=== PATIENT | female | born 1945 | race Caucasian/White ===

== ENCOUNTER 2016-10-12 13:30 | Inpatient (IN) | payer MEDICARE ==
--- NOTE | ~2016-10-12 | IDS ---
Interim Discharge Summary [facility] [address] [place]. [address] NAME: SANDI FUNEZ : 47 STATUS : ADM IN PAT#: [id number] AGE: 71 ADM/REG DATE : 10/12/16 MR#: [id number] REPORT SERV DATE: 10/18/16 DICTATED BY: ELLYN MILLER II DATE: 10/18/16 REPORT STATUS : Draft TRANSCRIBED BY: MODL DATE: 10/18/16 ADMISSION DATE: 10/12/2016 DISCHARGE DATE: DATE OF INTERIM: 10/18/2016 INTERIM DIAGNOSES: 1. Metastatic ixc-srzgn-ogcy lung carcinoma. 2. Recurrent pericardial effusion with tamponade on admission, status post pericardial window. 3. Bilateral malignant effusions with history of right VATS and currently status post left VATS with chest tube in place. 4. Generalized weakness. 5. Edema with hydration. 6. Volume overload. 7. Chronic right upper extremity lymphedema. 8. History of breast cancer. 9. Anemia. CONSULTS: 1. Dr. Darleen Valdes with [facility]. 2. Dr. Fletcher with Cardiothoracic Surgery. BRIEF HISTORY OF PRESENT ILLNESS: The patient is a 71-year-old female with the above history, who presented to [facility] due to nausea, vomiting, and weakness. For detailed history and physical examination, please see Dr. Dandy Johnson's note from 10/12/2016. HOSPITAL COURSE: After admission, the patient was found to have increasing pleural effusion on the right. CT of the chest was done, which showed a new large pericardial effusion measuring 5.5 cm with a moderate loculated right pleural effusion with associated atelectasis and consolidation in the right lower lobe, right middle lobe, and to a lesser extent, posterior aspect of the right upper lobe. There is a small left effusion and left basilar atelectasis. There was stranding and inflammation in the superior mediastinum, right axilla along with right chest wall, and in the right upper extremity, which is associated with her lymphedema. There was also noted a moderate stenosis of the origin of the left subclavian artery. Subsequent echocardiogram was done, which showed large pericardial effusion with signs of tamponade. Otherwise LVEF was intact in the low 50s and RV function was normal. Cardiothoracic Surgery was consulted, and the patient subsequently underwent a left VATS with left pericardial window and drainage with pericardial effusion. Pathology on pericardial fluid again positive for malignancy. Currently, the patient still has a left chest tube in place with improvement in output. Hopefully, this can be discontinued soon. Regarding her lung cancer, Dr. 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 This is currently pending further discussion for chemotherapy options per Oncology. Otherwise, the patient does appear to be fairly fluid overloaded with bilateral lower extremity edema. Currently, she is being given Lasix 40 mg q.8 hours and will continue to watch her creatinine closely. Interim Discharge Summary [place] [id number] [place]. [address] NAME: SANDI FUNEZ : 47 STATUS : ADM IN [facility]#: [id number] AGE: 71 ADM/REG DATE : 10/12/16 MR#: [id number] REPORT SERV DATE: 10/18/16 DICTATED BY: ELLYN MILLER II DATE: 10/18/16 REPORT STATUS : Draft TRANSCRIBED BY: BRUNILDA DATE: 10/18/16 She has chronic fairly significant right upper extremity lymphedema given her history of breast cancer. The patient is going to be re-evaluated by Physical Therapy given her weakness and postop status. She may need rehab going forward. Case Management is following. Otherwise, Dr. Soto will take over for the patient starting tomorrow. YESICA/BRUNILDA Ellyn Miller II, MD / [id number] CC: Brett Howe M.D.
--- NOTE | ~2016-10-12 | OP ---
Record Of Operation [facility] [address] [place]. [address] NAME: SANDI FUNEZ MICHELLE : 47 STATUS : ADM IN PAT#: [id number] AGE: 71 ADM/REG DATE : 10/12/16 MR#: [id number] REPORT SERV DATE: 10/16/16 DICTATED BY: EMILE JEONG DATE: 10/15/16 REPORT STATUS : Draft TRANSCRIBED BY: MODL DATE: 10/15/16 DATE OF PROCEDURE: 10/15/2016 ATTENDING PHYSICIAN: Emile Jeong M.D. CONSTRUCTION DIRECTOR: Armaan Ruvalcaba M.D. RN MILITARY: Sarkis White. PREOPERATIVE DIAGNOSES: 1. Stage IV lung non-small cell lung cancer. 2. Recurrent malignant pericardial effusion. 3. Cardiac tamponade. POSTOPERATIVE DIAGNOSES: 1. Stage IV lung non-small cell lung cancer. 2. Recurrent malignant pericardial effusion. 3. Cardiac tamponade. PROCEDURE PERFORMED: 1. Left video-assisted thoracoscopic surgery. 2. Left pericardial window with drainage of pericardial effusion. COMPLICATIONS: None. TUBES AND DRAINS: A 32 straight. FINDINGS: 900 mL of bloody pericardial effusion. PATH: The effusion was sent for path and a quarter size piece of pericardium was sent. POSTOPERATIVE CONDITION: To CVICU on epinephrine drip. INTRAOPERATIVE FINDINGS: Continued approximately 7 to 8 minutes post induction prior to me starting operation while she was still supine. She had episodes of symptomatic bradycardia with hypertension which responded to epinephrine, and she spent the remainder of the operation on epinephrine drip. She did get approximately 10 seconds of compressions from Dr. Suman Alamo. INDICATIONS FOR PROCEDURE: The patient is a 71-year-old female who underwent approximately a year ago a right talc pleurodesis and pericardial window by myself. She had a prolonged protracted stay in the hospital from that and presents to [facility] now with recurrent pericardial effusion. She was suspected from malignant non-small cell lung cancer from her stage IV disease. The patient was seen. Risks, benefits, and alternatives were discussed, and she was taken to the operating room. She had signs of cardiac tamponade on her preoperative echo and a large pericardial effusion on her CT scan. Risks, benefits, and Record Of Operation [facility] [address] [place]. [address] NAME: DEE DEESANDI MARTINEZ : 47 STATUS : ADM IN PAT#: [id number] AGE: 71 ADM/REG DATE : 10/12/16 MR#: [id number] REPORT SERV DATE: 10/16/16 DICTATED BY: EMILE JEONG DATE: 10/15/16 REPORT STATUS : Draft TRANSCRIBED BY: BRUNILDA DATE: 10/15/16 alternatives were discussed again, and she was brought to the operating room. DETAILS OF PROCEDURE: The patient was brought to the operating room, placed supine on the operating room table. After satisfactory induction of general endotracheal anesthesia, she was having IVs placed when she had a symptomatic episode of bradycardia. She underwent ephedrine, epinephrine and approximately 10 to 15 seconds of compressions which she responded to. Decision was made to continue the case. The patient was then log rolled in a right lateral decubitus position. Axillary roll was placed on. Arm was placed on an arm board. All pressure points were padded. The beanbag was aspirated. She was prepped and draped in usual sterile fashion. A 3-cm incision was made in the 6th intercostal space. The skin and subcutaneous tissues were divided down to the latissimus. The latissimus was divided. The chest wall was encountered, and the intercostal muscle was incised. Chest was entered. A wound protector was placed, and the camera was introduced. Working through this port, a pericardial fat pad was removed from the pericardium and the pericardium was tense and dark. A hook cautery was used to make a small incision in the pericardium which immediately had a fountainess release of bloody pericardial effusion. Following drainage of this, approximately 900 mL, the pericardium was grasped and elevated and using the Enseal a quarter to 50 cent piece of pericardium was excised. The pericardial fat pad was excised as well, and the procedure was terminated. The 32-[place] chest tube was placed to the apex and was anchored into position. The lung was reinflated. The procedure was terminated. The wound was closed with 0 Vicryl, 2-0 Vicryl, and 4-0 Monocryl. Dry sterile dressings were placed. She was log rolled supine, taken to CVICU in critical stable condition. CHANDANA/BRUNILDA Emile Jeong MD / [id number] CC: Darleen Valdes M.D.
--- NOTE | ~2016-10-12 | HP ---
History And Physical [facility] [address] [place]. [address] NAME: SANDI FUNEZ : 47 STATUS : ADM IN PAT#: [id number] AGE: 71 ADM/REG DATE : 10/12/16 MR#: [id number] REPORT SERV DATE: 10/12/16 DICTATED BY: CORONA JOHNSON DATE: 10/12/16 REPORT STATUS : Draft TRANSCRIBED BY: MODL DATE: 10/12/16 DATE OF ADMISSION: 10/12/2016 CHIEF COMPLAINT ON ADMISSION: Inability to tolerate p.o. and weakness. HISTORY OF PRESENT ILLNESS: This is a 71-year-old female, sent in from Dr. Darleen Valdes's office today. She presented today for an acute visit. She was seen by Dr. Darleen Valdes on October 01 and at that time was doing well. Stated for the past few days since about October 06, she has not been feeling well. She says for several days, she has been unable to tolerate anything but liquids by mouth. This includes some of her medications and her pain medication. She has chronic back pain for which she has been slightly worsening due to inability to tolerate her pain medication. She presented to the ER on the and was noted to have leukocyte esterase, positive on her urine and was started on Macrobid. She states that made her nausea and vomiting worse and given her recent C. difficile, Dr. Valdes stopped this medication subsequently. She has had no fevers. No diarrhea. She reports she is having normal formed stools. Her weakness and lightheadedness have gotten worse and she presented to the office today in a wheelchair. Dr. Valdes reports that she had been given her IV fluids in the office without any improvement in her weakness. She did have slight orthostatic hypotension today. She has also not been able to tolerate her Tarceva for several days. She denies dysuria or chest pain. She says she has more shortness of breath than usual when she gets up but she says that is because she just feels so weak. REVIEW OF SYSTEMS: Full review of systems is obtained and is negative with the exception of the above HPI. PAST MEDICAL HISTORY: 1. She has a history of breast cancer 9 years ago. She was on hormonal therapy for this breast cancer stage III. 2. She has a history of surgeries including hysterectomy, cholecystectomy, and back surgeries. 3. Metastatic adenocarcinoma of the lung. HOME MEDICATIONS: Artificial Tears p.r.n.; Coreg 3.125 p.o. b.i.d.; Tarceva 150 mg daily; folic acid 1 mg daily; Lasix 40 mg daily; Dilaudid p.r.n.; lisinopril 2.5 daily; Ativan p.r.n.; Zofran p.r.n.; pantoprazole 40 p.o. b.i.d.; Phenergan p.r.n.; magic mouthwash p.r.n.; and magnesium p.r.n. for leg cramps. SURGERIES: Other surgeries include VATS, pleurodesis, pericardial window, and bilateral mastectomy. She does have chronic right arm lymphedema subsequently. ALLERGIES: INCLUDE CODEINE, CEPHALOSPORINS, PRIMARILY KEFLEX. SOCIAL HISTORY: Former smoker. Denies current alcohol or drugs. Past medical history, mother did have history of ovarian cancer. History And Physical [address] [address] NAME: SANDI FUNEZ : 47 STATUS : ADM IN [facility]#: [id number] AGE: 71 ADM/REG DATE : 10/12/16 MR#: [id number] REPORT SERV DATE: 10/12/16 DICTATED BY: CORONA JOHNSON DATE: 10/12/16 REPORT STATUS : Draft TRANSCRIBED BY: BRUNILDA DATE: 10/12/16 Today in the office, Dr. Valdes did check blood work that overall was unremarkable. White blood cell count 9.8, hemoglobin 10.4 with platelet count of 286. BMP unremarkable. PHYSICAL EXAMINATION: VITAL SIGNS: Temperature 98.3, blood pressure 143/76, saturating 99% on room air, pulse of 96, and breathing 18 times a minute. GENERAL: This is a chronically ill-appearing female, who is in no acute distress. She is pleasant and cooperative. HEENT: Extraocular muscles are intact. Sclerae anicteric. Pupils equal. NECK: Supple. LUNGS: Clear to auscultation bilaterally without any appreciable wheezes, rales, or rhonchi. CARDIAC: Regular rate and rhythm with no murmurs appreciated. EXTREMITIES: She does have mild right arm lymphedema. No lower extremity edema. ABDOMEN: Soft, nontender, and nondistended with no appreciable masses. NEUROLOGIC: Cranial nerves 2 through 12 are grossly intact. Face is symmetric. Tongue is midline. PSYCHIATRIC: The patient is cooperative and appropriate. ASSESSMENT AND PLAN: This is a 71-year-old female, who presents with worsening weakness, nausea, vomiting, and inability to tolerate p.o. PROBLEMS: 1. Metastatic lung cancer non-small cell. We will have Oncology follow with as per discussion with Dr. Valdes. We will hold Tarceva at this time. We will also get an MRI of her brain given she would be at risk for possible intracranial metastasis which may explain some of her symptoms. 2. Orthostatic hypotension. We will resuscitate her with IV fluids and check an a.m. cortisol to rule out any adrenal insufficiency. 3. Recent Clostridium difficile infection and sepsis. We will check a procalcitonin and hold off on starting empiric antibiotics given recent Clostridium difficile. We will also check cultures and follow along. 4. Weakness. We will workup for infection as mentioned above. Check cultures. We will also check a procalcitonin. 5. History of breast cancer. She has been recently on tamoxifen. Oncology will follow along with us. 6. History of iron-deficiency anemia. We will follow her counts. 7. Hypokalemia and hypocalcemia. We will follow her counts and continue her home calcium supplementation. 8. Hypertension. We will hold her lisinopril and her Lasix given her orthostatic hypotension. 9. Code status. The patient is a limited code. She does not wish to have compressions or intubation. 10.DVT prophylaxis with enoxaparin. History And Physical [address] [address] NAME: SANDI FUNEZ : 47 STATUS : ADM IN PAT#: [id number] AGE: 71 ADM/REG DATE : 10/12/16 MR#: [id number] REPORT SERV DATE: 10/12/16 DICTATED BY: CORONA JOHNSON DATE: 10/12/16 REPORT STATUS : Draft TRANSCRIBED BY: BRUNILDA DATE: 10/12/16 TIFFANIE/BRUNILDA Corona Johnson MD / [id number] CC: Brett Howe M.D.
--- NOTE | ~2016-10-12 | DS ---
Discharge Summary [facility] [address] [place]. [address] NAME: SANDI FUNEZ : 47 STATUS : DIS IN PAT#: [id number] AGE: 71 ADM/REG DATE : 10/12/16 MR#: [id number] REPORT SERV DATE: 10/22/16 DICTATED BY: NASIM SOTO DATE: 10/21/16 REPORT STATUS : Draft TRANSCRIBED BY: MODL DATE: 10/21/16 ADMISSION DATE: 10/12/2016 DISCHARGE DATE: 10/21/2016 DISCHARGE DIAGNOSES: 1. Metastatic non-small cell lung cancer. 2. Pericardial effusion with tamponade physiology, status post pericardial window. 3. Anasarca. 4. Generalized debility. 5. Chronic right upper extremity lymphedema that is stable. 6. History of breast cancer. 7. Anemia. CONSULTANTS DURING THIS HOSPITALIZATION: Dr. Darleen Valdes of [facility]. Dr. Fletcher of Cardiothoracic Surgery. BRIEF HISTORY OF PRESENT ILLNESS: The patient is a 71-year-old female, presented with nausea, vomiting, and weakness. For detailed history and physical exam, please see note dictated by Dr. Dandy Johnson on 10/12/2016. HOSPITAL COURSE: After being admitted to the hospital, this patient was cared for by Dr. Arthur. Please refer to interim summary dictated by Dr. Arthur on 10/18/2016. I took over this patient's care on 10/19/2016. This patient was doing relatively well. She still had significant output in her chest tube and Cardiothoracic Surgery continued to follow. Within the next 48 hours, this patient's chest tube output significantly reduced. She was placed to water seal and then chest tube was removed. Post removal, this patient's overall debility significantly improved. Oncology signed off her care and CT surgery signed off her care as well. This patient feels well enough that she wants to go home and recover in the home setting. This was thought to be a mainly fluid related effusion, so her diuretics were increased during this stay. However, now her creatinine is rising, so will go back to using once daily Lasix. Otherwise, she remained stable and is being discharged in stable condition. DISCHARGE DISPOSITION: Home. DISCHARGE ACTIVITY: As tolerated. DISCHARGE DIET: Low sodium diet. DISCHARGE MEDICATIONS: Folic acid 1 mg once daily, Lasix 40 mg once daily, Protonix 40 mg twice daily, Tarceva 150 mg p.o. daily, Coreg 3.125 mg twice daily, Artificial tears, Promethazine 25 mg every six hours p.r.n. for nausea, lisinopril 2.5 mg once daily, magic mouthwash as needed, lorazepam 0.5 mg once every four hours p.r.n. for anxiety, Dilaudid 1 mg to 2 mg every four hours p.r.n., Zofran ODT 8 mg p.o. six hours p.r.n., magnesium one tablet p.o. daily p.r.n. Discharge Summary [address] [facility] [address] NAME: SANDI FUNEZ : 47 STATUS : DIS IN PAT#: [id number] AGE: 71 ADM/REG DATE : 10/12/16 MR#: [id number] REPORT SERV DATE: 10/22/16 DICTATED BY: NASIM SOTO DATE: 10/21/16 REPORT STATUS : Draft TRANSCRIBED BY: BRUNILDA DATE: 10/21/16 DISCHARGE FOLLOWUP: With Dr. Darleen Valdes in the office as scheduled previously, with Dr. Fletcher as scheduled by the Surgery, and with Dr. Lisette Torres as scheduled in the past. More than 30 minutes spent planning this patient's discharge, reconciling medications, discussing hospital care, follow up with the patient, and documenting this discharge. SV/MODL Nasim Soto M.D. / [id number] CC: Brett Howe M.D. Brooke R. Daniel, M.D. Wilson M. Clements, MD
--- NOTE | ~2016-10-12 | CN ---
Consultation Report [facility] [address] [place]. [address] NAME: ILSA FUNEZ : 47 STATUS : ADM IN PAT#: [id number] AGE: 71 ADM/REG DATE : 10/12/16 MR#: [id number] REPORT SERV DATE: 10/15/16 DICTATED BY: TIARA THOMAS DATE: 10/15/16 REPORT STATUS : Draft TRANSCRIBED BY: MODL DATE: 10/15/16 CONSULT REPORT DATE OF CONSULTATION: 10/15/2016 Nurse practitioner with cardiothoracic surgery. REASON FOR CONSULTATION: Right-sided pleural effusion and pericardial effusion. HISTORY OF PRESENT ILLNESS: This is a pleasant 71-year-old female, who unfortunately has a history of stage IV non-small cell lung cancer. She had a malignant right-sided pleural effusion and pericardial effusion last year and underwent a right VATS with pericardial window and mechanical and chemical pleurodesis of the right lung in October [address] Emile Fletcher. She had stayed out of the hospital for some time but came back again on 10/12/2016 with weakness and poor appetite. She ended up having a CT angiogram of her chest which showed a large circumferential pericardial effusion measuring up to 5.5 cm in transverse diameter just adjacent to the left ventricle with signs of cardiac tamponade per echocardiogram this morning. Ejection fraction is estimated around 50%. There is also a moderate loculated right pleural effusion involving all 3 lobes on the right with a small left-sided pleural effusion. Due to proximity of the right pleural effusion to the right chest wall and the pericardium, it would make it difficult to do a right VATS with pericardial window at this time. Currently her heart rate and blood pressure are stable with no significant symptoms other than weakness. Cardiothoracic Surgery was consulted for evaluation of pericardial window plus or minus a video-assisted thoracoscopy for right-sided pleural effusion. PAST MEDICAL HISTORY: She had a history of stage III breast cancer 9 years ago, status post bilateral mastectomy and metastatic adenocarcinoma of the lung. PAST SURGICAL HISTORY: Bilateral mastectomy, hysterectomy, back surgery, cholecystectomy, and pericardial window with right VATS and chemical and mechanical pleurodesis in October 2015. SOCIAL HISTORY: She is a former smoker but quit several years ago. No history of alcohol abuse or use of illicit drugs. FAMILY HISTORY: Mother with a history of ovarian cancer. ALLERGIES: SHE IS ALLERGIC TO CODEINE, CEPHALOSPORINS, AND SHE WAS PREVIOUSLY ALLERGIC TO KEFLEX. HOME MEDICATIONS: Artificial Tears 1 drop ophthalmically as needed; carvedilol 3.125 mg p.o. twice a day; Tarceva 150 mg p.o. daily; folic acid 1 mg p.o. every morning; Lasix 40 mg p.o. every morning; Dilaudid 1 to 2 mg p.o. q.4 hours as needed; lisinopril 2.5 mg p.o. every morning; Ativan 0.5 mg p.o. q.4 hours as needed; Zofran 8 mg p.o. q.6 hours as needed; Consultation Report [place] [id number] [facility] [place]. [address] NAME: ILSA FUNEZ : 47 STATUS : ADM IN [facility]#: [id number] AGE: 71 ADM/REG DATE : 10/12/16 MR#: [id number] REPORT SERV DATE: 10/15/16 DICTATED BY: TIARA THOMAS DATE: 10/15/16 REPORT STATUS : Draft TRANSCRIBED BY: BRUNILDA DATE: 10/15/16 Protonix 40 mg p.o. twice a day; Phenergan 25 mg p.o. q.6 hours as needed; Magic mouthwash 15 mL swish and swallow 4 times a day; and magnesium 1 tab p.o. daily as needed for leg cramps. REVIEW OF SYSTEMS: A 10-point review of systems was obtained and is negative other than the HPI. PHYSICAL EXAMINATION: VITAL SIGNS: From today, temperature 97.6, heart rate 87, blood pressure 117/61, respiratory rate 18, and O2 saturation 97% on 3 L. GENERAL: Pleasant ill-appearing female, in no acute distress. NEUROLOGIC: Alert and oriented x3. Pupils exhibit PERRLA. HEENT: Head normocephalic and atraumatic. NECK: Supple. Sclerae clear. LUNGS: Clear to auscultation. She has coarse lung sounds in the right base. CARDIAC: S1 and S2 with no murmurs, rubs, or gallops. ABDOMEN: Soft, nontender with active bowel sounds. EXTREMITIES: Free of cyanosis or clubbing. She has some swelling on her right upper extremity which is low but worse than the left. Pedal pulses are present and equal bilaterally. LAB DATA: White blood cell count 10.6, hemoglobin 9.3, hematocrit 29.2, and platelets 275. Sodium 135, potassium 4.2, chloride 103, bicarb 20, BUN 32, creatinine 1.2, and glucose 146. ASSESSMENT AND PLAN: This is a pleasant 71-year-old female with a history of metastatic adenocarcinoma of the lungs. She has had a pericardial effusion and pleural effusion previously with right VATS and pericardial window in October 2015. She is back in to the hospital with weakness and poor appetite. CT angiogram of the chest showed a large pericardial effusion with signs of tamponade per echocardiogram this morning and a moderate right sided loculated pleural effusion. Due to the proximity of her right pleural effusion to the chest wall and pericardium, she will need a left video-assisted thoracoscopy with pericardial window today and we will address the right-sided pleural effusion at a later time. I discussed the plan of care with the patient and the primary team reviewed the images in the operating room with Dr. Fletcher who believes the patient needs to go for surgery later this afternoon. We will keep her n.p.o. for now and consult her for the surgery later today. We appreciate the consultation and look forward to helping to take care of Ms Ilsa Funez. DEWEY/BRUNILDA Tiara Thomas NP Consultation Report [address] [address] NAME: ILSA FUNEZ : 47 STATUS : ADM IN PAT#: [id number] AGE: 71 ADM/REG DATE : 10/12/16 MR#: [id number] REPORT SERV DATE: 10/15/16 DICTATED BY: TIARA THOMAS DATE: 10/15/16 REPORT STATUS : Draft TRANSCRIBED BY: BRUNILDA DATE: 10/15/16 / [id number] CC: Brett Howe M.D.
[~2016-10-12 13:30] MED LIST: *UNABLE1; ACETSUP650 PR; ARIMIDEX1 PO; ASAB PO; ATV.5 PO; CENTRUM TAB1 TAB PO; CLARITD24H PO; CLOBETASOL E0.05 % TOP; CLOBETASOL0.051 EX; CLOBETASOL0.051 TOP; COREG3 PO; DIL2TAB PO; DIOVAN320 MG PO; DSS PO; ENDOCET1 TAB PO; FISH-EPA1000 MG PO; FLORASTOR250 MG PO; FOLIC PO; GOODY'S EX PO; GOODY'S EX-STR1 EAC1 PO; HYDROCHLOROT25 MG PO; KENALOG IN ORABA5 GM T; KLOR-CON M2020 MEQ PO; L40 PO; LEVAQUIN750 MG PO; LIQUID TEARS OPH; LOM PO; LOTE40 PO; MAGIC MOUTHWASH PO; MAGNESIUM OTC PO; MUCINEX600 MG PO; MULTIVIT/MIN PO; NATURA2 OPH; NATURE'S OPH; NORV10 PO; OTC IRON PO; OTC MAGNESIUM PO; OTC VITAMIN B-12 SL; PCET PO; PERCOCET PO; PERCOCET1 TA2 PO; POTASSIUM PO; PR25 PO; PRILO PO; PRILOSEC40 MG PO; PRIN2.5; PRIN2.5 PO; PROTONIX PO; REFLUX MED PO; TAMOXIFEN PO; TAMOXIFEN20 M1 PO; TARCEVA PO; TARCEVA100 PO; TEARS PURE OPH; TUMSROLL PO; V80 PO; VANCOCIN HCL125 MG PO; VITAMIN B-121000 MC1 SL; VITC500 PO; WATER PO; ZESTRIL2.5 MG PO; ZINC220C PO; ZOFRAN ODT4 MG PO; ZOFRAN4 PO; ZOFRANODT8 PO; [UNRECOGNIZED DRUG - OTHER] PO; [UNRECOGNIZED DRUG - OTHER] PO; [UNRECOGNIZED DRUG - OTHER] PO; [UNRECOGNIZED DRUG - REMARK]; [UNRECOGNIZED DRUG - REMARK]; [UNRECOGNIZED DRUG - REMARK] PO
[2016-10-12] MEDS ORDERED: DIL2TAB PO (14:11)
[2016-10-12] MEDS ORDERED: ATV.5 PO (14:11)
[2016-10-12] MEDS ORDERED: ZOFRANODT8 PO (14:12)
[2016-10-12] MEDS ORDERED: MAGNESIUM PO (14:14)
[2016-10-13 05:43] LABS: BASOPHILS 0 %; EOSINOPHILS 0.3 %; EOSINOPHILS ABSOLUTE 0.03 10/3/uL (0.0-0.53); HEMATOCRIT 31.9 % (36.0-48.0); HEMOGLOBIN 10.5 g/dL (12.0-16.0); IMMATURE GRANULOCYTES 0.2 %; IMMATURE GRANULOCYTES ABSOLUTE 0.02 10/3/uL (0.0-0.11); LYMPHOCYTES 11.5 %; LYMPHOCYTES ABSOLUTE 0.99 10/3/uL (0.67-4.30); MEAN CORPUS HGB CONC 32.9 g/dL (32.0-36.0); MEAN CORPUSCULAR HEMOGLOB 29.2 pg (26.0-34.0); MEAN CORPUSCULAR VOLUME 88.9 fL (80-100); MEAN PLATELET VOLUME 11.3 fL (9.2-13.0); MONOCYTES 7.2 %; MONOCYTES ABSOLUTE 0.62 10/3/uL (0.21-1.20); NEUTROPHILS 80.8 %; NEUTROPHILS ABSOLUTE 6.94 10/3/uL (2.02-8.40); PLATELET COUNT 287 10/3/uL (150-400); RBC DISTRIBUTION WIDTH 15.5 % (12.0-16.0); RED CELL COUNT 3.59 10/6/uL (4.0-5.6); WHITE BLOOD CELLS 8.6 10/3/uL (4.5-10.5)
[2016-10-13 05:45] LABS: MANUAL DIFF NO %
[2016-10-13 05:53] LABS: CALCIUM, SERUM 8.4 MG/DL (8.5-10.4); CHLORIDE, SERUM 103 MMOL/L (96-112); CREATININE 1.17 MG/DL (0.55-1.02); GFR AFRICAN AMERICAN 55 ML/MIN (>=60); GFR NON AFRICAN AMERICAN 47 ML/MIN (>=60); POTASSIUM, SERUM 3.9 MMOL/L (3.5-5.3); SGOT(AST) 23 U/L (5-40); SGPT(ALT) 43 U/L (5-65); SODIUM, SERUM 136 MMOL/L (135-148); TOTAL BILIRUBIN 0.8 MG/DL (0-1.2); TOTAL PROTEIN 6.6 G/DL (6.0-8.5)
[2016-10-13 05:54] LABS: A/G RATIO 0.8 (0.7-1.9); ALBUMIN 2.9 G/DL (3.5-5.0); ALKALINE PHOSPHATASE 80 U/L (45-117); BUN (BLOOD UREA NITROGEN) 35 MG/DL (6-23); CO2 (CARBON DIOXIDE) 22 MMOL/L (24-34); GLOBULIN 3.7 G/DL (2.5-4.1); GLUCOSE, SERUM 136 MG/DL (60-99)
[2016-10-13 06:44] LABS: PROCALCITONIN <0.05 ng/mL (<0.5)
[2016-10-14 05:54] LABS: BASOPHILS 0 %; EOSINOPHILS 0.1 %; EOSINOPHILS ABSOLUTE 0.01 10/3/uL (0.0-0.53); HEMATOCRIT 28.9 % (36.0-48.0); HEMOGLOBIN 9.5 g/dL (12.0-16.0); IMMATURE GRANULOCYTES 0.4 %; IMMATURE GRANULOCYTES ABSOLUTE 0.04 10/3/uL (0.0-0.11); LYMPHOCYTES 10.3 %; LYMPHOCYTES ABSOLUTE 0.98 10/3/uL (0.67-4.30); MEAN CORPUS HGB CONC 32.9 g/dL (32.0-36.0); MEAN CORPUSCULAR HEMOGLOB 29.4 pg (26.0-34.0); MEAN CORPUSCULAR VOLUME 89.5 fL (80-100); MEAN PLATELET VOLUME 11.2 fL (9.2-13.0); MONOCYTES 8.4 %; NEUTROPHILS 80.8 %; NEUTROPHILS ABSOLUTE 7.67 10/3/uL (2.02-8.40); NUCLEATED RED BLOOD CELLS 1.5 /100WBC (0-0); PLATELET COUNT 240 10/3/uL (150-400); RBC DISTRIBUTION WIDTH 15.8 % (12.0-16.0); RED CELL COUNT 3.23 10/6/uL (4.0-5.6); WHITE BLOOD CELLS 9.5 10/3/uL (4.5-10.5)
[2016-10-14 05:55] LABS: MANUAL DIFF NO %
[2016-10-14 05:58] LABS: CALCIUM, SERUM 8.3 MG/DL (8.5-10.4); CHLORIDE, SERUM 104 MMOL/L (96-112); CO2 (CARBON DIOXIDE) 21 MMOL/L (24-34); CREATININE 1.04 MG/DL (0.55-1.02); GFR AFRICAN AMERICAN 63 ML/MIN (>=60); GFR NON AFRICAN AMERICAN 54 ML/MIN (>=60); GLUCOSE, SERUM 138 MG/DL (60-99); POTASSIUM, SERUM 3.9 MMOL/L (3.5-5.3); SODIUM, SERUM 137 MMOL/L (135-148)
[2016-10-14 05:59] LABS: BUN (BLOOD UREA NITROGEN) 30 MG/DL (6-23)
[2016-10-15 05:09] LABS: BASOPHILS 0 %; EOSINOPHILS 0.2 %; EOSINOPHILS ABSOLUTE 0.02 10/3/uL (0.0-0.53); HEMATOCRIT 29.2 % (36.0-48.0); HEMOGLOBIN 9.3 g/dL (12.0-16.0); IMMATURE GRANULOCYTES 0.3 %; IMMATURE GRANULOCYTES ABSOLUTE 0.03 10/3/uL (0.0-0.11); LYMPHOCYTES 11.9 %; LYMPHOCYTES ABSOLUTE 1.26 10/3/uL (0.67-4.30); MEAN CORPUS HGB CONC 31.8 g/dL (32.0-36.0); MEAN CORPUSCULAR HEMOGLOB 28.3 pg (26.0-34.0); MEAN CORPUSCULAR VOLUME 88.8 fL (80-100); MEAN PLATELET VOLUME 10.6 fL (9.2-13.0); MONOCYTES 8.6 %; MONOCYTES ABSOLUTE 0.91 10/3/uL (0.21-1.20); NEUTROPHILS ABSOLUTE 8.38 10/3/uL (2.02-8.40); NUCLEATED RED BLOOD CELLS 0.5 /100WBC (0-0); PLATELET COUNT 275 10/3/uL (150-400); RBC DISTRIBUTION WIDTH 16.4 % (12.0-16.0); RED CELL COUNT 3.29 10/6/uL (4.0-5.6); WHITE BLOOD CELLS 10.6 10/3/uL (4.5-10.5)
[2016-10-15 05:13] LABS: MANUAL DIFF NO %
[2016-10-15 05:18] LABS: BUN (BLOOD UREA NITROGEN) 32 MG/DL (6-23); CALCIUM, SERUM 8.5 MG/DL (8.5-10.4); CHLORIDE, SERUM 103 MMOL/L (96-112); CO2 (CARBON DIOXIDE) 20 MMOL/L (24-34); CREATININE 1.23 MG/DL (0.55-1.02); GFR AFRICAN AMERICAN 51 ML/MIN (>=60); GFR NON AFRICAN AMERICAN 44 ML/MIN (>=60); GLUCOSE, SERUM 146 MG/DL (60-99); POTASSIUM, SERUM 4.2 MMOL/L (3.5-5.3); SODIUM, SERUM 135 MMOL/L (135-148)
[2016-10-15 14:13] LABS: INTERNATIONAL NORMAL RATI 1.7 UNITS (-); PARTIAL THROMBO TIME 29.8 SEC (22.5-37.2); PROTIME (NOT ORD) 20.1 SEC (12.0-14.5)
[2016-10-15 17:28] LABS: BASOPHILS 0 %; EOSINOPHILS 0.3 %; EOSINOPHILS ABSOLUTE 0.03 10/3/uL (0.0-0.53); HEMATOCRIT 26.9 % (36.0-48.0); IMMATURE GRANULOCYTES 0.8 %; IMMATURE GRANULOCYTES ABSOLUTE 0.08 10/3/uL (0.0-0.11); LYMPHOCYTES 5.9 %; LYMPHOCYTES ABSOLUTE 0.57 10/3/uL (0.67-4.30); MEAN CORPUSCULAR VOLUME 89.7 fL (80-100); MEAN PLATELET VOLUME 10.5 fL (9.2-13.0); MONOCYTES 4.9 %; MONOCYTES ABSOLUTE 0.47 10/3/uL (0.21-1.20); NEUTROPHILS 88.1 %; NEUTROPHILS ABSOLUTE 8.46 10/3/uL (2.02-8.40); NUCLEATED RED BLOOD CELLS 1.3 /100WBC (0-0); PLATELET COUNT 206 10/3/uL (150-400); RBC DISTRIBUTION WIDTH 16.4 % (12.0-16.0); WHITE BLOOD CELLS 9.6 10/3/uL (4.5-10.5)
[2016-10-15 17:29] LABS: MANUAL DIFF NO %; MEAN CORPUS HGB CONC 33.5 g/dL (32.0-36.0)
[2016-10-15 17:31] LABS: BUN (BLOOD UREA NITROGEN) 29 MG/DL (6-23); CALCIUM, SERUM 8.6 MG/DL (8.5-10.4); CHLORIDE, SERUM 105 MMOL/L (96-112); CO2 (CARBON DIOXIDE) 21 MMOL/L (24-34); CREATININE 1.07 MG/DL (0.55-1.02); GFR AFRICAN AMERICAN 61 ML/MIN (>=60); GFR NON AFRICAN AMERICAN 53 ML/MIN (>=60); GLUCOSE, SERUM 139 MG/DL (60-99); POTASSIUM, SERUM 3.9 MMOL/L (3.5-5.3); SODIUM, SERUM 137 MMOL/L (135-148)
[2016-10-16 03:59] LABS: BASOPHILS 0.1 %; BASOPHILS ABSOLUTE 0.01 10/3/uL (0.0-0.16); EOSINOPHILS 0.4 %; EOSINOPHILS ABSOLUTE 0.05 10/3/uL (0.0-0.53); HEMATOCRIT 28.4 % (36.0-48.0); HEMOGLOBIN 9.1 g/dL (12.0-16.0); IMMATURE GRANULOCYTES 0.4 %; IMMATURE GRANULOCYTES ABSOLUTE 0.05 10/3/uL (0.0-0.11); LYMPHOCYTES 8.1 %; LYMPHOCYTES ABSOLUTE 0.92 10/3/uL (0.67-4.30); MEAN CORPUSCULAR HEMOGLOB 28.8 pg (26.0-34.0); MEAN CORPUSCULAR VOLUME 89.9 fL (80-100); MEAN PLATELET VOLUME 10.5 fL (9.2-13.0); MONOCYTES 7.7 %; MONOCYTES ABSOLUTE 0.87 10/3/uL (0.21-1.20); NEUTROPHILS 83.3 %; PLATELET COUNT 260 10/3/uL (150-400); RBC DISTRIBUTION WIDTH 16.5 % (12.0-16.0); RED CELL COUNT 3.16 10/6/uL (4.0-5.6); WHITE BLOOD CELLS 11.3 10/3/uL (4.5-10.5)
[2016-10-16 04:00] LABS: MANUAL DIFF NO %
[2016-10-16 04:16] LABS: CALCIUM, SERUM 8.2 MG/DL (8.5-10.4); CHLORIDE, SERUM 105 MMOL/L (96-112); CO2 (CARBON DIOXIDE) 23 MMOL/L (24-34); CREATININE 0.94 MG/DL (0.55-1.02); GFR AFRICAN AMERICAN 71 ML/MIN (>=60); GFR NON AFRICAN AMERICAN 61 ML/MIN (>=60); GLUCOSE, SERUM 123 MG/DL (60-99); SODIUM, SERUM 139 MMOL/L (135-148)
[2016-10-16 04:17] LABS: BUN (BLOOD UREA NITROGEN) 25 MG/DL (6-23)
[2016-10-17 06:54] LABS: BASOPHILS 0 %; EOSINOPHILS 1.4 %; EOSINOPHILS ABSOLUTE 0.19 10/3/uL (0.0-0.53); HEMOGLOBIN 9.9 g/dL (12.0-16.0); IMMATURE GRANULOCYTES 0.3 %; IMMATURE GRANULOCYTES ABSOLUTE 0.04 10/3/uL (0.0-0.11); LYMPHOCYTES 3.6 %; MANUAL DIFF NO %; MEAN CORPUSCULAR HEMOGLOB 29.9 pg (26.0-34.0); MEAN CORPUSCULAR VOLUME 90.6 fL (80-100); MEAN PLATELET VOLUME 9.6 fL (9.2-13.0); MONOCYTES 5.6 %; MONOCYTES ABSOLUTE 0.78 10/3/uL (0.21-1.20); NEUTROPHILS 89.1 %; PLATELET COUNT 272 10/3/uL (150-400); RBC DISTRIBUTION WIDTH 17.3 % (12.0-16.0); RED CELL COUNT 3.31 10/6/uL (4.0-5.6); WHITE BLOOD CELLS 13.9 10/3/uL (4.5-10.5)
[2016-10-17 07:07] LABS: BUN (BLOOD UREA NITROGEN) 12 MG/DL (6-23); CALCIUM, SERUM 8.1 MG/DL (8.5-10.4); CHLORIDE, SERUM 105 MMOL/L (96-112); CO2 (CARBON DIOXIDE) 23 MMOL/L (24-34); CREATININE 0.68 MG/DL (0.55-1.02); GFR AFRICAN AMERICAN 103 ML/MIN (>=60); GFR NON AFRICAN AMERICAN 89 ML/MIN (>=60); GLUCOSE, SERUM 109 MG/DL (60-99); SODIUM, SERUM 138 MMOL/L (135-148)
[2016-10-18 04:22] LABS: BASOPHILS 0.1 %; BASOPHILS ABSOLUTE 0.01 10/3/uL (0.0-0.16); EOSINOPHILS 0.8 %; EOSINOPHILS ABSOLUTE 0.11 10/3/uL (0.0-0.53); HEMATOCRIT 28.9 % (36.0-48.0); HEMOGLOBIN 9.5 g/dL (12.0-16.0); IMMATURE GRANULOCYTES 0.3 %; IMMATURE GRANULOCYTES ABSOLUTE 0.04 10/3/uL (0.0-0.11); LYMPHOCYTES 4.1 %; LYMPHOCYTES ABSOLUTE 0.57 10/3/uL (0.67-4.30); MEAN CORPUS HGB CONC 32.9 g/dL (32.0-36.0); MEAN CORPUSCULAR HEMOGLOB 29.6 pg (26.0-34.0); MEAN PLATELET VOLUME 9.6 fL (9.2-13.0); MONOCYTES 6.8 %; MONOCYTES ABSOLUTE 0.94 10/3/uL (0.21-1.20); NEUTROPHILS 87.9 %; NEUTROPHILS ABSOLUTE 12.25 10/3/uL (2.02-8.40); PLATELET COUNT 276 10/3/uL (150-400); RBC DISTRIBUTION WIDTH 17.5 % (12.0-16.0); RED CELL COUNT 3.21 10/6/uL (4.0-5.6); WHITE BLOOD CELLS 13.9 10/3/uL (4.5-10.5)
[2016-10-18 04:25] LABS: MANUAL DIFF NO %
[2016-10-18 04:29] LABS: BUN (BLOOD UREA NITROGEN) 10 MG/DL (6-23); CALCIUM, SERUM 7.7 MG/DL (8.5-10.4); CHLORIDE, SERUM 102 MMOL/L (96-112); CREATININE 0.69 MG/DL (0.55-1.02); GFR AFRICAN AMERICAN 102 ML/MIN (>=60); GFR NON AFRICAN AMERICAN 88 ML/MIN (>=60); GLUCOSE, SERUM 96 MG/DL (60-99); POTASSIUM, SERUM 3.5 MMOL/L (3.5-5.3); SODIUM, SERUM 140 MMOL/L (135-148)
[2016-10-18 04:30] LABS: CO2 (CARBON DIOXIDE) 29 MMOL/L (24-34)
[2016-10-19 06:00] LABS: BASOPHILS 0.1 %; BASOPHILS ABSOLUTE 0.01 10/3/uL (0.0-0.16); EOSINOPHILS 2.1 %; HEMATOCRIT 27.9 % (36.0-48.0); IMMATURE GRANULOCYTES 0.2 %; IMMATURE GRANULOCYTES ABSOLUTE 0.02 10/3/uL (0.0-0.11); LYMPHOCYTES 7.5 %; MEAN CORPUS HGB CONC 32.3 g/dL (32.0-36.0); MEAN PLATELET VOLUME 9.6 fL (9.2-13.0); MONOCYTES 6.7 %; MONOCYTES ABSOLUTE 0.63 10/3/uL (0.21-1.20); NEUTROPHILS 83.4 %; NEUTROPHILS ABSOLUTE 7.83 10/3/uL (2.02-8.40); PLATELET COUNT 265 10/3/uL (150-400); RBC DISTRIBUTION WIDTH 17.8 % (12.0-16.0); WHITE BLOOD CELLS 9.4 10/3/uL (4.5-10.5)
[2016-10-19 06:07] LABS: MANUAL DIFF NO %
[2016-10-19 06:19] LABS: BUN (BLOOD UREA NITROGEN) 9 MG/DL (6-23); CALCIUM, SERUM 7.8 MG/DL (8.5-10.4); CHLORIDE, SERUM 99 MMOL/L (96-112); CO2 (CARBON DIOXIDE) 31 MMOL/L (24-34); CREATININE 0.62 MG/DL (0.55-1.02); GFR AFRICAN AMERICAN 106 ML/MIN (>=60); GFR NON AFRICAN AMERICAN 91 ML/MIN (>=60); GLUCOSE, SERUM 90 MG/DL (60-99); POTASSIUM, SERUM 3.1 MMOL/L (3.5-5.3); SODIUM, SERUM 142 MMOL/L (135-148)
[2016-10-20 05:33] LABS: BUN (BLOOD UREA NITROGEN) 8 MG/DL (6-23); CHLORIDE, SERUM 99 MMOL/L (96-112); CO2 (CARBON DIOXIDE) 32 MMOL/L (24-34); CREATININE 0.72 MG/DL (0.55-1.02); GFR AFRICAN AMERICAN 98 ML/MIN (>=60); GFR NON AFRICAN AMERICAN 85 ML/MIN (>=60); GLUCOSE, SERUM 93 MG/DL (60-99); POTASSIUM, SERUM 3.6 MMOL/L (3.5-5.3); SODIUM, SERUM 140 MMOL/L (135-148)
[2016-10-20 05:35] LABS: ALBUMIN 2.3 G/DL (3.5-5.0)
[2016-10-20 06:23] LABS: BASOPHILS 0.2 %; BASOPHILS ABSOLUTE 0.01 10/3/uL (0.0-0.16); EOSINOPHILS 2.9 %; EOSINOPHILS ABSOLUTE 0.18 10/3/uL (0.0-0.53); HEMATOCRIT 30.5 % (36.0-48.0); HEMOGLOBIN 9.9 g/dL (12.0-16.0); IMMATURE GRANULOCYTES 0.2 %; IMMATURE GRANULOCYTES ABSOLUTE 0.01 10/3/uL (0.0-0.11); MANUAL DIFF NO %; MEAN CORPUS HGB CONC 32.5 g/dL (32.0-36.0); MEAN CORPUSCULAR HEMOGLOB 29.1 pg (26.0-34.0); MEAN CORPUSCULAR VOLUME 89.7 fL (80-100); MEAN PLATELET VOLUME 9.8 fL (9.2-13.0); MONOCYTES 10.1 %; MONOCYTES ABSOLUTE 0.62 10/3/uL (0.21-1.20); NEUTROPHILS 73.6 %; NEUTROPHILS ABSOLUTE 4.52 10/3/uL (2.02-8.40); PLATELET COUNT 286 10/3/uL (150-400); RBC DISTRIBUTION WIDTH 18.1 % (12.0-16.0); WHITE BLOOD CELLS 6.1 10/3/uL (4.5-10.5)
[2016-10-21] MEDS ORDERED: PCET PO (11:08)
== END 2016-10-21 17:00 | disposition home or self-care (01) | DRG 271 ==
LOC: 4EA 13:30 → SDC/OF 10-15 16:54 → CVICU 10-15 17:19 → 5NO 10-16 23:23
PROVIDERS: Internal Medicine; Internal Medicine Hematology & Oncology; Thoracic Surgery (Cardiothoracic Vascular Surgery)
PROC: 02BN4ZX Excision of Pericardium, Percutaneous Endoscopic Approach, Diagnostic (ICD-10-PCS; 2016-10-15)
PROC: 0W9D4ZZ Drainage of Pericardial Cavity, Percutaneous Endoscopic Approach (ICD-10-PCS; principal; 2016-10-15 12:00)
DX: I31.3 Pericardial effusion (noninflammatory) (principal); J91.0 Malignant pleural effusion; I31.4 Cardiac tamponade; C78.00 Secondary malignant neoplasm of unspecified lung; E83.51 Hypocalcemia; D64.9 Anemia, unspecified; Z85.3 Personal history of malignant neoplasm of breast; I95.1 Orthostatic hypotension; E87.6 Hypokalemia; I10 Essential (primary) hypertension; Z87.891 Personal history of nicotine dependence
CPT/HCPCS: 36415; 36593; 70553; 71010; 71020; 71260; 74000; 80048; 80053; 80069; 81235; 82533; 82962; 83735; 84100; 84132; 84145; 85025; 85610; 85730; 86850; 86900; 86901; 87015; 87040; 87070; 87075; 87102; 87116; 87205; 88112; 88305; 94640; 97161-GP; 97164-GP; 97165-GO; A9270-GY; C8929; G8978-CH-GP; G8978-CJ-GP; G8979-CH-GP; G8979-CI-GP; G8980-CH-GP; G8987-CH-GO; G8988-CH-GO; G8989-CH-GO; J0690; J1170; J2250; J2270; J2370; J2405; J2550; J2710; J2997; J3010; J3370; P9045; Q9957; Q9967